=== PATIENT | female | born 1945 | race Caucasian/White ===

== ENCOUNTER 2022-08-17 15:32 | Inpatient (IN) | payer MEDICARE, OTHER ==
[~2022-08-17] VITALS: Ht 154.9 cm; Wt 61.2 kg
--- NOTE | 2022-08-17 15:54 | NUR ---
[id number] C/O SUBSTERNAL CP X 3 DAYS RADIATING TO THE THE BACK, 01/29. DENIES N/V AND DIARRHEA. NO SOB. LIVES AT HOME WITH FAMILY. PLACED PT IN BED AND PLACED IN FUEL CONVERSION TECHNICIAN, TECH AT BEDSIDE FOR EKG.
[2022-08-17] MEDS ORDERED: ASPIRIN 325 MG TABLET ONE (16:28)
[2022-08-17] MEDS ORDERED: ASPIRIN 325 MG TABLET PO ONE (16:30)
--- NOTE | 2022-08-17 16:45 | NUR ---
MOVE SHEET SUBMITTED.
[2022-08-17 16:52] LABS: BASOPHILS # (AUTO) 0.1 K/uL (0.0-0.2); EOSINOPHILS % (AUTO) 1.5 % (0.0-6.0); HEMATOCRIT 21 % (33-45); LYMPHOCYTES # (AUTO) 2.3 K/uL (0.8-4.8); MEAN CORPUSCULAR HGB CONC 32 g/dl (31.0-36.0); MEAN CORPUSCULAR VOLUME 75 fL (82-100); MONOCYTES # (AUTO) 2.5 K/uL (0.1-1.30); MONOCYTES % (AUTO) 21.1 % (2.0-12.0); NEUTROPHILS # (AUTO) 6.6 K/uL (1.8-8.9); NEUTROPHILS % (AUTO) 56.4 % (43.0-81.0); PLATELET COUNT (AUTO) 108 K/uL (150-450); RED BLOOD CELL COUNT(AUTO) 2.78 MIL/uL (4.0-5.2); WHITE BLOOD COUNT (AUTO) 11.7 K/uL (4.3-11.0)
[2022-08-17 17:11] LABS: HEMOGLOBIN 6.6 g/dL (11.5-14.8)
[2022-08-17 17:23] LABS: ALANINE AMINOTRANSFERASE 15 U/L (12-78); ALKALINE PHOSPHATASE 141 U/L (46-116); ASPARTATE AMINOTRANSFERASE 17 U/L (15-37); BILIRUBIN,DIRECT 0.3 mg/dL (0.0-0.2); CALCIUM, SERUM 8.5 mg/dL (8.5-10.1); CARBON DIOXIDE 22 mmol/L (21-32); CHLORIDE 107 mmol/L (98-107); CREATININE 1.5 mg/dL (0.6-1.3); GLUCOSE 136 mg/dL (74-106); POTASSIUM 5.2 mmol/L (3.5-5.1); SODIUM SERUM 138 mmol/L (136-145); TOTAL PROTEIN, SERUM 5.5 g/dL (6.4-8.2); UREA NITROGEN, BLOOD 24 mg/dL (7-18)
--- NOTE | 2022-08-17 17:40 | NUR ---
covid swab taken
[2022-08-17] MEDS ORDERED: SODIUM POLYSTYRENE SULFONATE 15 G/60 ML BOTTLE PO ONE (18:30)
[2022-08-17] MEDS ORDERED: FUROSEMIDE 20 MG/2 ML VIAL IV ONE (18:30)
[2022-08-17] MEDS ORDERED: FUROSEMIDE 20 MG/2 ML VIAL ONE (19:10)
--- NOTE | 2022-08-17 19:10 | NUR ---
[facility] CALLED BILINGUAL RECEPTIONIST PAGED.
[2022-08-17] MEDS ORDERED: SODIUM POLYSTYRENE SULFONATE 15 G/60 ML BOTTLE ONE (19:11)
--- NOTE | 2022-08-17 19:26 | NUR ---
16FR BALL INSERTED W/ URINE OUTPUT. PT TOLERATED WELL
--- NOTE | 2022-08-17 19:48 | NUR ---
BLOOD TRANSFUSION CONSENT SIGNED BY PT
[2022-08-17] MEDS ORDERED: MAG HYDROX/AL HYDROX/SIMETH 30 ML UDC PO PRN (20:00)
[2022-08-17] MEDS ORDERED: DILTIAZEM HCL 25 MG IV IV ONE (20:00)
[2022-08-17] MEDS ORDERED: MORPHINE SULFATE INJ 2 MG/ML DISP.SYRIN IV PRN (20:00)
[2022-08-17] MEDS ORDERED: ONDANSETRON HCL/PF 4 MG/2 ML VIAL IVP PRN (20:00)
[2022-08-17] MEDS ORDERED: DOCUSATE SODIUM 100 MG CAPSULE PO PRN (20:00)
[2022-08-17] MEDS ORDERED: NITROGLYCERIN 0.4 MG/TAB BOTTLE SL PRN (20:00)
--- NOTE | 2022-08-17 20:11 | NUR ---
report given to fay tamayo
[2022-08-17 20:15] LABS: LYMPHOCYTES % (MANUAL) 26 % (16-48); MONOCYTES % (MANUAL) 19 % (0-11.0); NEUTROPHILS % (MANUAL) 55 (42-76)
[2022-08-17 20:30] VITALS: BP 141/84
--- NOTE | 2022-08-17 20:30 | NUR ---
REWEAVER ADMITTING NOTES PT ARRIVED AT UNIT VIA GURNEY BY ER STAFF. PT A/O X3, ABLE TO MAKE NEEDS KNOWN, FAROESE SPEAKING PRIMARILY, UNDERSTANDS SOME CHILEAN. PT ORIENTED TO UNIT AND TAUGHT HOW TO USE CALL LIGHT. VS: 141/84 BP, 114 PULSE, 18 RR, 98.1 TEMP, 97% O2 SAT. WEIGHT: 146 LB. ALL BELONGINGS ACCOUNTED FOR AND DOCUMENTED. STABLE ON RA WITH NO S/S OF SOB OR LABORED BREATHING. TELE MONITOR PLACED, READING ST WITH BBB AND PAC'S, 100 BPM. SKIN ASSESSMENT PERFORMED AND DOCUMENTED IN CHART: R HAND BRUISE, L UPPER ARM RED SPOTS, BIG RED SPOT ON LEFT UPPER CHEST. PT DENIES ANY PAIN OR DISCOMFORT AT THIS TIME. IV ACCESS L HAND 20G SL, PATENT AND INTACT. BALL CATHETER INTACT DRAINING CLEAR YELLOW URINE. PT HAD 1X BOWEL MOVEMENT DURING ADMISSION PROCESS. SAFETY MEASURES IMPLEMENTED: BED LOCKED AND IN LOW POSITION, SIDE RAILS UP X3, CALL LIGHT AND TRAY TABLE WITHIN REACH. WILL CONTINUE TO MONITOR AND ASSIST.
--- NOTE | 2022-08-17 20:32 | NUR ---
PT TRANSFERRING TO [facility]-2 VIA ACLS PROTOCOL. VSS. ALL BELONGINGS WITH PT.
[2022-08-17] MEDS: CEFTRIAXONE 1 G in IV D5W 50 ML IV SCH (21:30)
[2022-08-18] VITALS (9 sets, daily range): BP systolic 116–146; BP diastolic 49–80
--- NOTE | 2022-08-18 04:10 | NUR ---
RN NOTES PT FINISHED TRANSFUSION OF 1 PACKED PRBC. NO REACTIONS NOTED. PT TOLERATED WELL. VITAL SIGNS DOCUMENTED PER PROTOCOL. WILL CONTINUE TO MONITOR.
[2022-08-18 06:13] LABS: OCCULT BLOOD STOOL NEGATIVE (NEGATIVE)
--- NOTE | 2022-08-18 07:00 | NUR ---
FIRER LOCOMOTIVE CRANE CLOSING NOTES PT IN BED SLEEPING AT THIS TIME. A/O X3, ABLE TO MAKE NEEDS KNOWN, KYRGYZ SPEAKING PRIMARILY, UNDERSTANDS SOME COOK ISLANDER. ON RA WITH NO S/S OF SOB OR LABORED BREATHING. TELE MONITOR PLACED, READING ST WITH BBB AND PAC'S, 100 BPM. PT DENIES ANY PAIN OR DISCOMFORT AT THIS TIME. IV ACCESS L HAND 20G SL, PATENT AND INTACT. BALL CATHETER INTACT DRAINING CLEAR YELLOW URINE. PT POST BLOOD TRANSFUSION OF 1 UNIT OF PRBC LAST NIGHT, TOLERATED WELL. ALL CARE PROVIDED AND MEDICATIONS TOLERATED WELL. SAFETY MEASURES MAINTAINED: BED LOCKED AND IN LOW POSITION, SIDE RAILS UP X3, CALL LIGHT AND TRAY TABLE WITHIN REACH. WILL ENDORSE DONTRELL TO DAY SHIFT NURSE.
[2022-08-18 07:01] LABS: IRON, SERUM 27 ug/dl (50-175); TOTAL IRON BINDING CAPACITY 150 ug/dl (250-450)
[2022-08-18 07:11] LABS: FERRITIN 883 ng/mL (8-388)
--- NOTE | 2022-08-18 07:11 | NUR ---
ORDER CHECKER OPENING NOTES RECEIVED PATIENT SLEEPING IN BED, A/Ox3 BHUTANESE SPEAKING. ABLE TO VERBALIZE NEEDS. ON ROOM AIR, NO S/S OF RESPIRATORY DISTRESS. IV ACCESS: L HAND #20 S/L. INTACT AND PATENT. ON TELE MONITORING SINUS TACH HR 101 WITH BBB AND PACs. NO C/O OF CHEST PAIN AT THIS TIME. HAS FC DRAINING YELLOW URINE. SKIN ISSUES: R HAND BRUISE, NIKKIE REDNESS, L UPPER CHEST REDNESS. SAFETY MEASURES IN PLACE: BED LOCKED AND IN LOWEST POSITION, HOB ELEVATED, SIDE RAILS UP x2, BED ALARM ON, CALL LIGHT WITHIN REACH. WILL CONTINUE TO MONITOR.
[2022-08-18] MEDS: ACETAMINOPHEN 325 MG TABLET PO PRN ×2 (08:49→21:12)
[2022-08-18] MEDS: ASPIRIN 81 MG TAB.CHEW PO SCH (08:49)
[2022-08-18] MEDS ORDERED: FOLI0.8C PO (08:57)
[2022-08-18] MEDS ORDERED: APIX2.5T PO (08:57)
[2022-08-18] MEDS ORDERED: KERENDIA PO (08:57)
[2022-08-18] MEDS ORDERED: HYDR-3980 PO (08:57)
[2022-08-18] MEDS ORDERED: CARV12.52 PO (08:57)
[2022-08-18] MEDS ORDERED: LOSA50TA39 PO (08:57)
[2022-08-18] MEDS ORDERED: LINA5TAB PO (08:57)
[2022-08-18] MEDS ORDERED: DAPA5TAB PO (08:57)
[2022-08-18] MEDS ORDERED: HYDR100T27 PO (08:57)
[2022-08-18] MEDS ORDERED: ALLO100T PO (08:57)
[2022-08-18] MEDS ORDERED: GLIP5TAB13 PO (08:57)
--- NOTE | 2022-08-18 09:00 | NUR ---
RN NOTES PATIENT COMPLAINED OF HEADACHE, PRN TYLENOL GIVEN. WILL CONTINUE TO MONITOR.
[2022-08-18] MEDS: AMIODARONE HCL 200 MG TABLET PO SCH ×2 (09:59→17:20)
[2022-08-18] MEDS: FUROSEMIDE 40 MG/4 ML VIAL IV SCH ×2 (09:59→14:04)
--- NOTE | 2022-08-18 14:29 | NUR ---
RN NOTES PAIN NOT COMPLAINING OF ANY CHEST PAIN, ON PHONE. ALL NEEDS ATTENDED TO.
--- NOTE | 2022-08-18 18:54 | NUR ---
BOOTH CASHIER CLOSING NOTES PATIENT SLEEPING IN BED, A/Ox3 COLOMBIAN SPEAKING. ABLE TO VERBALIZE NEEDS. STABLE ON ROOM AIR, NO S/S OF RESPIRATORY DISTRESS. IV ACCESS: L HAND #20 S/L. INTACT AND PATENT. ON TELE MONITORING SINUS RHYTHM HR 86. NO C/O OF CHEST PAIN AT THIS TIME. HAS FC DRAINING YELLOW URINE. SKIN ISSUES: R HAND BRUISE, NIKKIE REDNESS, L UPPER CHEST REDNESS. SAFETY MEASURES MAINTAINED: BED LOCKED AND IN LOWEST POSITION, HOB ELEVATED, SIDE RAILS UP x2, BED ALARM ON, CALL LIGHT WITHIN REACH. WILL ENDORSE TO NEXT SHIFT ANY DONTRELL.
--- NOTE | 2022-08-18 19:55 | NUR ---
CIGAR PACKER AND GRADER OPENING NOTE PATIENT AWAKE IN BED WITH DAUGHTER AT BEDSIDE, PT ALERT/ORIENTED X 4, PATIENT ABLE TO MAKE NEEDS KNOWN IN AUSTRIAN. PT STABLE ON RA, NO S/S OF DISTRESS OR SOB NOTED, BREATHING EVEN AND UNLABORED. PATIENT ON EXTERNAL LOG CHECK SCALER READING SINUS RHYTHM, HR: 81. IV ACCESS ON LEFT HAND #20G INTACT AND SALINE LOCKED. BALL CATHETER IN PLACE AND DRAINING YELLOW URINE BY GRAVITY. SAFETY MEASURES IN PLACE: CALL LIGHT WITHIN REACH, SIDE RAILS UP X 2, BED LOCKED IN LOWEST POSITION, BED ALARM ON. WILL CONTINUE TO MONITOR PATIENT
[2022-08-18 20:46] LABS: BILIRUBIN,URINE NEGATIVE (NEGATIVE); COLOR,URINE YELLOW (YELLOW); LEUKOCYTE ESTERASE ,URINE NEGATIVE (NEGATIVE); NITRITE, URINE NEGATIVE (NEGATIVE); PH,URINE 5.5 (5.0-8.0); PROTEIN,URINE NEGATIVE (NEGATIVE); UGLUCOSE NEGATIVE (NEGATIVE); UROBILINOGEN,URINE 0.2 EU/dL (0.2)
[2022-08-18] MEDS: CEFTRIAXONE 1 G in IV D5W 50 ML IV SCH (21:12)
[2022-08-18 22:37] LABS: BACTERIA,URINE None seen /HPF (None Seen); RBC,URINE 51-80 /HPF (0-2); SQUAMOUS EPITHELIAL CELL,UR 0-2 /HPF (None Seen); WBC,URINE 0-2 /HPF (0-3)
[2022-08-19] VITALS (7 sets, daily range): BP systolic 126–150; BP diastolic 54–69
--- NOTE | 2022-08-19 06:22 | NUR ---
HARNESS MENDER CLOSING NOTE PATIENT SLEEPING IN BED, PT ALERT/ORIENTED X 4, PATIENT ABLE TO MAKE NEEDS KNOWN IN AUSTRALIAN. PT STABLE ON RA, NO S/S OF DISTRESS OR SOB NOTED, BREATHING EVEN AND UNLABORED. PATIENT ON EXTERNAL HOME WORKER READING SINUS RHYTHM WITH PAC'S & PVC'S, HR: 78. IV ACCESS ON LEFT HAND #20G INTACT AND SALINE LOCKED. BALL CATHETER IN PLACE AND DRAINING YELLOW URINE BY GRAVITY, OUTPUT OF 1600 ML. NO SIGNIFICANT CHANGES THIS SHIFT, PT SLEPT WELL THROUGH THE NIGHT, MEDICATIONS GIVEN ORDERED, PT NEEDS MET THROUGHOUT SHIFT. SAFETY MEASURES IN PLACE: CALL LIGHT WITHIN REACH, SIDE RAILS UP X 2, BED LOCKED IN LOWEST POSITION, BED ALARM ON. WILL ENDORSE TO DAYSHIFT RN FOR CONTINUITY OF CARE
[2022-08-19 06:35] LABS: BASOPHILS # (AUTO) 0.1 K/uL (0.0-0.2); HEMATOCRIT 27 % (33-45); HEMOGLOBIN 8.6 g/dL (11.5-14.8); LYMPHOCYTES # (AUTO) 2.2 K/uL (0.8-4.8); LYMPHOCYTES % (AUTO) 16.1 % (20.0-44.0); MEAN CORPUSCULAR HGB CONC 32 g/dl (31.0-36.0); MEAN CORPUSCULAR VOLUME 76 fL (82-100); MONOCYTES # (AUTO) 2.9 K/uL (0.1-1.30); MONOCYTES % (AUTO) 21.8 % (2.0-12.0); NEUTROPHILS % (AUTO) 59.1 % (43.0-81.0); PLATELET COUNT (AUTO) 83 K/uL (150-450); RED BLOOD CELL COUNT(AUTO) 3.48 MIL/uL (4.0-5.2); WHITE BLOOD COUNT (AUTO) 13.5 K/uL (4.3-11.0)
--- NOTE | 2022-08-19 07:20 | NUR ---
MS RN OPENING NOTES RECEIVED PATIENT SLEEPING IN BED, A/Ox3 TURKMEN SPEAKING. ABLE TO VERBALIZE NEEDS. ON ROOM AIR, NO S/S OF RESPIRATORY DISTRESS. IV ACCESS: L HAND #20 S/L, R CHEST PORT. INTACT AND PATENT. NO C/O OF CHEST PAIN AT THIS TIME. HAS FC DRAINING YELLOW URINE. SKIN ISSUES: R HAND BRUISE, NIKKIE REDNESS, L UPPER CHEST REDNESS. SAFETY MEASURES IN PLACE: BED LOCKED AND IN LOWEST POSITION, HOB ELEVATED, SIDE RAILS UP x2, BED ALARM ON, CALL LIGHT WITHIN REACH. WILL CONTINUE TO MONITOR. Addendum: 08/19/22 at 0815 by MALIHA DUDLEY RN ADDENDUM: PATIENT STILL ON TELE MONITORING SHOWING SINUS RHYTHM HR 86 WITH PVCs AND PACs
[2022-08-19 07:25] LABS: ALANINE AMINOTRANSFERASE 17 U/L (12-78); ALBUMIN 2.9 g/dL (3.4-5.0); ALKALINE PHOSPHATASE 167 U/L (46-116); ASPARTATE AMINOTRANSFERASE 19 U/L (15-37); BILIRUBIN,TOTAL 0.9 mg/dL (0.2-1.0); CALCIUM, SERUM 8.3 mg/dL (8.5-10.1); CARBON DIOXIDE 25 mmol/L (21-32); CHLORIDE 101 mmol/L (98-107); CREATININE 1.8 mg/dL (0.6-1.3); GLUCOSE 222 mg/dL (74-106); MAGNESIUM 1.8 mg/dL (1.8-2.4); PHOSPHORUS 5.4 mg/dL (2.5-4.9); POTASSIUM 4.1 mmol/L (3.5-5.1); SODIUM SERUM 136 mmol/L (136-145); TOTAL PROTEIN, SERUM 5.4 g/dL (6.4-8.2); UREA NITROGEN, BLOOD 29 mg/dL (7-18)
[2022-08-19] MEDS: AMIODARONE HCL 200 MG TABLET PO SCH ×2 (08:17→16:18)
[2022-08-19] MEDS: ASPIRIN 81 MG TAB.CHEW PO SCH (08:17)
--- NOTE | 2022-08-19 15:00 | NUR ---
RN NOTES PATIENT IN BED RESTING, NO S/S OF CHEST PAIN OR DISCOMFORT. WILL CONTINUE TO MONITOR.
[2022-08-19] MEDS: CARVEDILOL 12.5 MG TABLET PO SCH (16:18)
--- NOTE | 2022-08-19 18:48 | NUR ---
HAT MAKER CLOSING NOTES PATIENT SLEEPING IN BED, A/Ox3 CZECH SPEAKING. ABLE TO VERBALIZE NEEDS. STABLE ON ROOM AIR, NO S/S OF RESPIRATORY DISTRESS. IV ACCESS: L HAND #20 S/L. INTACT AND PATENT. ON TELE MONITORING SINUS RHYTHM 75 WITH BBB, PACs AND PVCs. NO C/O OF CHEST PAIN AT THIS TIME. HAS FC DRAINING YELLOW URINE. SKIN ISSUES: R HAND BRUISE, NIKKIE REDNESS, L UPPER CHEST REDNESS. SAFETY MEASURES IN PLACE: BED LOCKED AND IN LOWEST POSITION, HOB ELEVATED, SIDE RAILS UP x2, BED ALARM ON, CALL LIGHT WITHIN REACH. WILL ENDORSE TO NEXT SHIFT ANY DONTRELL.
[2022-08-19 19:22] LABS: BAND % (MANUAL) 5 % (0.0-5.0); LYMPHOCYTES % (MANUAL) 29 % (16-48); MONOCYTES % (MANUAL) 17 % (0-11.0); NEUTROPHILS % (MANUAL) 49 (42-76)
--- NOTE | 2022-08-19 19:30 | NUR ---
COLLEGE DIRECTOR NOTES Received pt lying bed on semi fowlers position awake and alert Salvadorean speaking with heplock on her left hand gauge 20 patent and intact. Denies any pain or any discomfort. Re- orient where she at and how to used the call light system. She also on Tele SR with BBB ,PAC's ,PVC's. Respiration even and non-labored . She also have nix to gravity with draining well. Kept her warm and comfortable at all times . Bed in low and lock in position with side rails X2 up . Place call light at reach. will continue monitoring.
[2022-08-19] MEDS: CEFTRIAXONE 1 G in IV D5W 50 ML IV SCH (20:33)
[2022-08-20 00:24] VITALS: BP 131/38
[2022-08-20 04:40] VITALS: BP 144/62
[2022-08-20 06:46] LABS: BASOPHILS # (AUTO) 0.1 K/uL (0.0-0.2); BASOPHILS % (AUTO) 0.5 % (0.0-2.0); EOSINOPHILS % (AUTO) 2.5 % (0.0-6.0); HEMATOCRIT 26 % (33-45); HEMOGLOBIN 8.2 g/dL (11.5-14.8); LYMPHOCYTES # (AUTO) 2.1 K/uL (0.8-4.8); LYMPHOCYTES % (AUTO) 18.2 % (20.0-44.0); MEAN CORPUSCULAR HGB CONC 32 g/dl (31.0-36.0); MEAN CORPUSCULAR VOLUME 77 fL (82-100); MONOCYTES # (AUTO) 2.7 K/uL (0.1-1.30); MONOCYTES % (AUTO) 23.2 % (2.0-12.0); NEUTROPHILS # (AUTO) 6.4 K/uL (1.8-8.9); NEUTROPHILS % (AUTO) 55.6 % (43.0-81.0); PLATELET COUNT (AUTO) 77 K/uL (150-450); RED BLOOD CELL COUNT(AUTO) 3.38 MIL/uL (4.0-5.2); WHITE BLOOD COUNT (AUTO) 11.5 K/uL (4.3-11.0)
[2022-08-20 06:55] LABS: CALCIUM, SERUM 8.2 mg/dL (8.5-10.1); CARBON DIOXIDE 25 mmol/L (21-32); CHLORIDE 100 mmol/L (98-107); CREATININE 1.9 mg/dL (0.6-1.3); GLUCOSE 219 mg/dL (74-106); MAGNESIUM 1.9 mg/dL (1.8-2.4); PHOSPHORUS 4.8 mg/dL (2.5-4.9); SODIUM SERUM 136 mmol/L (136-145); UREA NITROGEN, BLOOD 33 mg/dL (7-18)
--- NOTE | 2022-08-20 06:57 | NUR ---
tele cream beater notes pt remain sleeping coimfortably in bed with no signs of any acute distress or any discomfort noted. Stable throughout the night . vital signs stable .Morning care rendered with the helped of SANTANA Valdez. Tele SR with BBB with PVC"S and PAC"S . Kept her warm and comfortable at all times. On semi fowlers position with side rails X2 up, bed in low and lock in position with bed alarm set for pt safety. will endorse to am nurse for continuity of care. place call light at reach.
[2022-08-20 07:04] LABS: THYROID STIMULATING HORMONE 1.938 uIU/mL (0.358-3.74)
[2022-08-20 07:05] LABS: C-REACTIVE PROTEIN 2.2 mg/dL (0.0-0.9)
[2022-08-20 07:12] LABS: D-DIMER 0.7 mg/L(FEU (0.17-0.50)
--- NOTE | 2022-08-20 07:18 | NUR ---
CASINO CAGE SUPERVISOR OPENING NOTES PATIENT SLEEPING IN BED, A/Ox3. ABLE TO VERBALIZE NEEDS. STABLE ON ROOM AIR, NO S/S OF RESPIRATORY DISTRESS. IV ACCESS: L HAND #20 S/L. INTACT AND PATENT. ON TELE MONITORING SINUS RHYTHM WITH BBB, PACs AND PVCs. NO COMPLAIN OF CHEST PAIN AT THIS TIME. HAS BALL CATHETER DRAINING VIA GRAVITY TO URINE BAG WITH YELLOW URINE. WITH RIGHT CHEST WALL PERMACATH. SAFETY MEASURES IN PLACE: BED LOCKED AND IN LOWEST POSITION, HOB ELEVATED, SIDE RAILS UP x2, BED ALARM ON, CALL LIGHT WITHIN REACH. WILL CONTINUE WITH PLAN OF CARE.
[2022-08-20 08:16] VITALS: BP 135/48
[2022-08-20] MEDS: ASPIRIN 81 MG TAB.CHEW PO SCH (08:56)
[2022-08-20] MEDS: ALLOPURINOL 100 MG TABLET PO SCH (08:57)
[2022-08-20] MEDS: CARVEDILOL 12.5 MG TABLET PO SCH ×2 (08:57→16:51)
[2022-08-20] MEDS: LINAGLIPTIN 5 MG TABLET PO SCH ×2 (08:58→09:00)
[2022-08-20] MEDS: FOLIC ACID 1 MG TABLET PO SCH (08:58)
[2022-08-20] MEDS: LOSARTAN POTASSIUM 50 MG TABLET PO SCH (08:58)
[2022-08-20] MEDS: AMIODARONE HCL 200 MG TABLET PO SCH ×2 (08:58→16:51)
--- NOTE | 2022-08-20 09:36 | NUR ---
AMERICAN SIGN LANGUAGE TEACHER NOTE TRAJENTA NOT GIVEN, PATIENT ON NPO ORDERED. IN STABLE CONDITION.
[2022-08-20 12:00] VITALS: BP 116/50
[2022-08-20 16:01] VITALS: BP 153/56
--- NOTE | 2022-08-20 19:05 | NUR ---
LOOP DRIER OPERATOR CLOSING NOTES PATIENT IN BED, A/Ox3. ABLE TO VERBALIZE NEEDS. STABLE ON ROOM AIR, NO S/S OF RESPIRATORY DISTRESS. IV ACCESS: L HAND #20 S/L. INTACT AND PATENT. ON TELE MONITORING SINUS RHYTHM WITH BBB, PACs AND PVCs. NO COMPLAIN OF CHEST PAIN AT THIS TIME. HAS BALL CATHETER DRAINING VIA GRAVITY TO URINE BAG WITH YELLOW URINE. WITH RIGHT CHEST WALL PERMACATH. SAFETY MEASURES IN PLACE: BED LOCKED AND IN LOWEST POSITION, HOB ELEVATED, SIDE RAILS UP x2, BED ALARM ON, CALL LIGHT WITHIN REACH. ENDORSED TO NEXT SHIFT FOR CONTINUITY OF CARE. SEEN BY DR. TIO MD SPOKE WITH DAUGHTER ANSON. IN STABLE CONDITION.
[2022-08-20 19:14] LABS: BAND % (MANUAL) 3 % (0.0-5.0); EOSINOPHILS % (MANUAL) 0 % (0-4); LYMPHOCYTES % (MANUAL) 16 % (16-48); MONOCYTES % (MANUAL) 22 % (0-11.0); NEUTROPHILS % (MANUAL) 59 (42-76)
--- NOTE | 2022-08-20 19:34 | NUR ---
TELE SUPERVISOR CELL ROOM INITIAL NOTES Received report from Am nurse and checked the patient as well. She's awake , alert watching TV at this time. Denies any pain or any discomfort. Still with Montaño to gravity with clear yellow output noted .She also on Tele SR with BBB with PAC's and PVC's. Encourage her to used the call light system if she needs some help or needs assistance. Kept her warm and comfortable at all times. will continue monitoring.
[2022-08-20 20:00] VITALS: BP_SYST 123; BP_SYST 130; BP_DIAS 60; BP_DIAS 70
[2022-08-20] MEDS: CEFTRIAXONE 1 G in IV D5W 50 ML IV SCH (21:21)
[2022-08-21] VITALS: BP_SYST 132; BP_SYST 137; BP_DIAS 44; BP_DIAS 77
--- NOTE | 2022-08-21 | NUR ---
EdytaN NOTES PT SLEEPING COMFORTABLY IN BED WITHOUT ANY DISTRESS NOTED. KEPT HER WARM AND COMFORTABLE AT ALL TIMES. WILL CONTINUE MONITORING.
[2022-08-21 04:00] VITALS: BP 109/61
[2022-08-21 07:00] VITALS: BP 124/58
[2022-08-21 07:07] LABS: IMMUNOGLOBULIN A, SERUM 33 mg/dL (64-422); IMMUNOGLOBULIN G, SERUM 450 mg/dL (586-1602); IMMUNOGLOBULIN M, SERUM 53 mg/dL (26-217)
--- NOTE | 2022-08-21 07:21 | NUR ---
TELE HOTEL SUPERINTENDENT CLOSING NOTES Pt remains sleeping but arousable to touch. She woke up with smile on her face. Denies any pain at this time. stable all night. Tele SR with BBB, PAC's and PVC"s. Montaño draining well. Bed in low and lock in position with side rails x2 up and bed alarm set for pt safety. place call light at reach. endorse to am nurse for continuity of care.
--- NOTE | 2022-08-21 07:28 | NUR ---
RN OPENING NOTE RECEIVED PATIENT IN BED AWAKE, A/O X4, VERBALLY RESPONSIVE. NO SIGNS OF ACUTE DISTRESS NOTED. STABLE ON ROOM AIR, BREATHING EVEN AND UNLABORED. NO C/O PAIN AT THIS TIME. NOTED WITH PERIPHERAL LINE ON LEFT HAND #20G, INTACT AND PATENT, SALINE LOCKED. WITH F/C INTACT, DRAINING CLEAR YELLOW URINE VIA GRAVITY. ON TELE MONITORING CURRENTLY SHOWING SINUS RHYTHM WITH BBB, HR @64. SAFETY MEASURE IN PLACE. BED IN LOWEST AND LOCKED POSITION. SIDE RAILS UP X2, CALL LIGHT PLACED WITHIN EASY REACH. WILL CONTINUE TO MONITOR PATIENT.
[2022-08-21] MEDS: ALLOPURINOL 100 MG TABLET PO SCH (08:42)
[2022-08-21] MEDS: ASPIRIN 81 MG TAB.CHEW PO SCH (08:42)
[2022-08-21] MEDS: FOLIC ACID 1 MG TABLET PO SCH (08:42)
[2022-08-21] MEDS: LINAGLIPTIN 5 MG TABLET PO SCH (08:42)
[2022-08-21] MEDS: LOSARTAN POTASSIUM 50 MG TABLET PO SCH (08:43)
[2022-08-21] MEDS: AMIODARONE HCL 200 MG TABLET PO SCH ×2 (08:43→16:39)
[2022-08-21] MEDS: CARVEDILOL 12.5 MG TABLET PO SCH ×2 (08:43→16:39)
[2022-08-21 11:13] LABS: *ANA ANTI-CENTROMERE B AB <0.2 AI (0.0-0.9); *ANA ANTI-DNA(DS) AB, QN 1 IU/mL (0-9); *ANA ANTI-JO-1 <0.2 AI (0.0-0.9); *ANA ANTICHROMATIN ANTIBODY <0.2 AI (0.0-0.9); *ANA RNP ANTIBODIES <0.2 AI (0.0-0.9); *ANA SJOGREN'S ANTI-SS-A >8.0 AI (0.0-0.9); *ANA SJOGREN'S ANTI-SS-B <0.2 AI (0.0-0.9); *ANAANTI-SCLERODERMA-70 AB <0.2 AI (0.0-0.9); *ANASMITH AB <0.2 AI (0.0-0.9)
[2022-08-21 12:00] VITALS: BP 127/48
[2022-08-21 16:00] VITALS: BP 125/55
--- NOTE | 2022-08-21 18:39 | NUR ---
RN CLOSING NOTE PATIENT IN BED AWAKE, A/O X4, VERBALLY RESPONSIVE. NO SIGNS OF ACUTE DISTRESS NOTED. REMAINS STABLE ON ROOM AIR, BREATHING EVEN AND UNLABORED. NO C/O PAIN AT THIS TIME. PERIPHERAL LINE ON LEFT HAND #20G, INTACT AND PATENT, SALINE LOCKED. WITH F/C INTACT, DRAINING CLEAR YELLOW URINE VIA GRAVITY. CONTINUE ON TELE MONITORING CURRENTLY SHOWING SINUS RHYTHM WITH BBB, HR @64. ALL DUE MEDS GIVEN, TOLERATED WELL. SAFETY MEASURE MAINTAINED. BED IN LOWEST AND LOCKED POSITION. SIDE RAILS UP X2, CALL LIGHT PLACED WITHIN EASY REACH. WILL ENDORSE TO NEXT SHIFT FOR CONTINUITY OF CARE.
--- NOTE | 2022-08-21 19:30 | NUR ---
LEACH CELL OPERATOR OPENING NOTE RECEIVED PT AWAKE IN BED. A/O X4, SLOVENIAN SPEAKING, AND ABLE TO MAKE NEEDS KNOWN. PT STABLE ON ROOM AIR, TOLERATING WELL. NO SOB OR S/S OF RESPIRATORY DISTRESS. BREATHING EVEN AND UNLABORED. ON EXTERNAL MEDICAL SECRETARY RECEPTIONIST READING SR 66 BPM WITH BBB AND PACS. IV ACCESS L HAND 20G, INTACT AND PATENT, AND RCW PORTACATH. SAFETY PRECAUTIONS IN PLACE. BED IN LOWEST LOCKED POSITION, HOB ELEVATED, SIDE RAILS UP X3, AND CALL LIGHT AND TABLE WITHIN REACH. ALL NEEDS MET AT THIS TIME.
[2022-08-21 20:00] VITALS: BP 113/53
[2022-08-21] MEDS: CEFTRIAXONE 1 G in IV D5W 50 ML IV SCH (20:27)
[2022-08-22] VITALS: BP_SYST 133; BP_SYST 153; BP_DIAS 57; BP_DIAS 74
[2022-08-22 04:00] VITALS: BP 131/60
--- NOTE | 2022-08-22 06:48 | NUR ---
PLACEMENT ASSISTANT CLOSING NOTE PT AWAKE IN BED. A/O X4, IRISH SPEAKING, AND ABLE TO MAKE NEEDS KNOWN. PT STABLE ON ROOM AIR, TOLERATING WELL. NO SOB OR S/S OF RESPIRATORY DISTRESS. BREATHING EVEN AND UNLABORED. ON EXTERNAL CARDIOLOGY COORDINATOR READING SR 62 BPM WITH BBB AND PACS. IV ACCESS L HAND 20G, INTACT AND PATENT, AND RCW PORTACATH. ALL DUE MEDS GIVEN ORDERED. KEPT CLEAN AND DRY. SAFETY PRECAUTIONS IN PLACE AT ALL TIMES. BED IN LOWEST LOCKED POSITION, HOB ELEVATED, SIDE RAILS UP X3, AND CALL LIGHT AND TABLE WITHIN REACH. ALL NEEDS MET AT THIS TIME AND WILL ENDORSE TO ONCOMING NURSE FOR DONTRELL.
[2022-08-22 07:00] VITALS: BP 136/50
--- NOTE | 2022-08-22 07:10 | NUR ---
TURKEY CLEANER OPENING NOTES RECEIVED PATIENT SLEEPING IN BED, A/Ox3 KUWAITI SPEAKING. ABLE TO VERBALIZE NEEDS. ON ROOM AIR, NO S/S OF RESPIRATORY DISTRESS. IV ACCESS: L HAND #20 S/L, R CHEST PORT. INTACT AND PATENT. ON TELE MONITORING SHOWING SINUS RHYTHM HR 86 WITH BBB AND PACs. NO C/O OF CHEST PAIN AT THIS TIME. HAS FC DRAINING YELLOW URINE. SKIN ISSUES: R HAND BRUISE, NIKKIE REDNESS, L UPPER CHEST REDNESS. SAFETY MEASURES IN PLACE: BED LOCKED AND IN LOWEST POSITION, HOB ELEVATED, SIDE RAILS UP x2, BED ALARM ON, CALL LIGHT WITHIN REACH. WILL CONTINUE TO MONITOR.
[2022-08-22 07:18] LABS: BASOPHILS # (AUTO) 0.1 K/uL (0.0-0.2); BASOPHILS % (AUTO) 0.8 % (0.0-2.0); HEMATOCRIT 23 % (33-45); HEMOGLOBIN 7.4 g/dL (11.5-14.8); LYMPHOCYTES # (AUTO) 1.9 K/uL (0.8-4.8); LYMPHOCYTES % (AUTO) 19.8 % (20.0-44.0); MEAN CORPUSCULAR HGB CONC 32 g/dl (31.0-36.0); MEAN CORPUSCULAR VOLUME 76 fL (82-100); MONOCYTES # (AUTO) 2.4 K/uL (0.1-1.30); MONOCYTES % (AUTO) 24.7 % (2.0-12.0); NEUTROPHILS # (AUTO) 5.1 K/uL (1.8-8.9); NEUTROPHILS % (AUTO) 52.7 % (43.0-81.0); PLATELET COUNT (AUTO) 60 K/uL (150-450); RED BLOOD CELL COUNT(AUTO) 3.04 MIL/uL (4.0-5.2); WHITE BLOOD COUNT (AUTO) 9.7 K/uL (4.3-11.0)
[2022-08-22 07:36] LABS: ALANINE AMINOTRANSFERASE 17 U/L (12-78); ALBUMIN 2.8 g/dL (3.4-5.0); ALKALINE PHOSPHATASE 130 U/L (46-116); ASPARTATE AMINOTRANSFERASE 20 U/L (15-37); BILIRUBIN,TOTAL 0.7 mg/dL (0.2-1.0); CALCIUM, SERUM 7.5 mg/dL (8.5-10.1); CARBON DIOXIDE 25 mmol/L (21-32); CHLORIDE 102 mmol/L (98-107); CREATININE 2.2 mg/dL (0.6-1.3); GLUCOSE 188 mg/dL (74-106); MAGNESIUM 2.3 mg/dL (1.8-2.4); POTASSIUM 4.4 mmol/L (3.5-5.1); SODIUM SERUM 136 mmol/L (136-145); TOTAL PROTEIN, SERUM 5.2 g/dL (6.4-8.2); UREA NITROGEN, BLOOD 41 mg/dL (7-18)
[2022-08-22] MEDS: FOLIC ACID 1 MG TABLET PO SCH (08:48)
[2022-08-22] MEDS: LINAGLIPTIN 5 MG TABLET PO SCH (08:48)
[2022-08-22] MEDS: ALLOPURINOL 100 MG TABLET PO SCH (08:48)
[2022-08-22] MEDS: ASPIRIN 81 MG TAB.CHEW PO SCH (08:48)
[2022-08-22] MEDS: LOSARTAN POTASSIUM 50 MG TABLET PO SCH (08:49)
[2022-08-22] MEDS: CARVEDILOL 12.5 MG TABLET PO SCH ×2 (08:49→16:22)
[2022-08-22] MEDS: AMIODARONE HCL 200 MG TABLET PO SCH ×2 (08:50→16:21)
--- NOTE | 2022-08-22 11:35 | NUR ---
RN NOTE RECEIVED PATIENT IN BED AWAKE, WATCHING TV. NO SIGNS OF ACUTE DISTRESS NOTED. ON ROOM AIR, TOLERATING WELL. BREATHING EVEN AND UNLABORED. DENIES ANY PAIN AT THIS TIME, NO CARDIAC DISTRESS NOTED. WITH F/C INTACT, DRAINING CLEAR YELLOW URINE VIA GRAVITY. SAFETY MEASURES IN PLACE. WILL CONTINUE TO MONITOR PATIENT.
--- NOTE | 2022-08-22 11:36 | NUR ---
RN NOTES PATIENT CARE TRANSFERRED TO [facility].
[2022-08-22 12:00] VITALS: BP 124/39
[2022-08-22 13:10] LABS: BAND % (MANUAL) 1 % (0.0-5.0); BASOPHILS % (MANUAL) 0 % (0.0-2.0); EOSINOPHILS % (MANUAL) 2 % (0-4); LYMPHOCYTES % (MANUAL) 32 % (16-48); MONOCYTES % (MANUAL) 19 % (0-11.0); NEUTROPHILS % (MANUAL) 46 (42-76)
[2022-08-22 16:00] VITALS: BP 139/54
[2022-08-22] MEDS ORDERED: DEXTROSE 50%-WATER 50 ML DISP.SYRIN IV PRN (16:00)
[2022-08-22] MEDS: BLOOD SUGAR DIAGNOSTIC 1 EACH STRIP IN SCH ×2 (16:59→21:45)
[2022-08-22] MEDS: INSULIN REGULAR, HUMAN 100 UNIT/ML 3 ML VIAL SQ PRN ×2 (17:34→21:47)
--- NOTE | 2022-08-22 18:46 | NUR ---
RN CLOSING NOTE PATIENT IN BED AWAKE, A/O X4, VERBALLY RESPONSIVE. NO SIGNS OF ACUTE DISTRESS NOTED. REMAINS STABLE ON ROOM AIR, BREATHING EVEN AND UNLABORED. NO C/O PAIN AT THIS TIME. PERIPHERAL LINE ON LEFT HAND #20G, INTACT AND PATENT, SALINE LOCKED. WITH F/C INTACT, DRAINING CLEAR YELLOW URINE VIA GRAVITY. CONTINUE ON TELE MONITORING CURRENTLY SHOWING SINUS RHYTHM WITH BBB, PAC'S HR @66. ALL DUE MEDS GIVEN, TOLERATED WELL. SCHEDULED FOR EGD TOMORROW. SAFETY MEASURE MAINTAINED. BED IN LOWEST AND LOCKED POSITION. SIDE RAILS UP X2, CALL LIGHT PLACED WITHIN EASY REACH. WILL ENDORSE TO NEXT SHIFT FOR CONTINUITY OF CARE.
--- NOTE | 2022-08-22 19:15 | NUR ---
RN opening notes Received pt from morning nurse. Pt is sitting in bed comfortably watching TV. Pt is alert and orientedX4. Pt speaks French and able to make needs known. Tele monitor showed SR. IV site at L hand# 20 is clean, intact and flushes well. RCW portacath is inplaced. Montaño cath is inplaced and draining yellow urine. NPO midnight. Safety precautions is maintained. bed at low position, brakes locked, side rails upX3, bed alarm is on, hob elevated and call light is within reach. Will continue to monitor.
[2022-08-22 20:00] VITALS: BP_SYST 135; BP_SYST 145; BP_SYST 149; BP_DIAS 51; BP_DIAS 58; BP_DIAS 77
[2022-08-22] MEDS: CEFTRIAXONE 1 G in IV D5W 50 ML IV SCH (20:24)
[2022-08-23] VITALS: BP 137/51
[2022-08-23 03:10] LABS: BILIRUBIN,URINE NEGATIVE (NEGATIVE); COLOR,URINE YELLOW (YELLOW); LEUKOCYTE ESTERASE ,URINE TRACE (NEGATIVE); NITRITE, URINE NEGATIVE (NEGATIVE); PH,URINE 5.5 (5.0-8.0); PROTEIN,URINE TRACE mg/dl (NEGATIVE); UGLUCOSE NEGATIVE (NEGATIVE); UROBILINOGEN,URINE 0.2 EU/dL (0.2)
[2022-08-23 03:15] LABS: BACTERIA,URINE Rare /HPF (None Seen); SQUAMOUS EPITHELIAL CELL,UR Moderate /HPF (None Seen); WBC,URINE 0-2 /HPF (0-3)
[2022-08-23 03:18] LABS: CREATININE, URINE 18.9 MG/DL (30.0-125.0)
[2022-08-23 04:00] VITALS: BP 132/48
[2022-08-23] MEDS: BLOOD SUGAR DIAGNOSTIC 1 EACH STRIP IN SCH ×4 (06:30→22:34)
[2022-08-23] MEDS: INSULIN REGULAR, HUMAN 100 UNIT/ML 3 ML VIAL SQ PRN ×3 (06:30→22:38)
--- NOTE | 2022-08-23 06:30 | NUR ---
RN closing notes Pt is resting in bed comfortably. Pt is alert and orientedX4. Pt speaks Palauan and able to make needs known. Tele monitor showed S. hilda with ST depression HR at 57. IV site at L hand# 20 is clean, intact and SL. RCW portacath is inplaced. VS is stable. afebrile. Routine meds were given as ordered. Montaño cath is inplaced and draining yellow urine 700ml. NPO since midnight. Kept Pt clean, dry and comfortable. Safety precautions is maintained. bed at low position, brakes locked, side rails upX3, bed alarm is on, hob elevated and call light is within reach. Will endorse to am nurse for DONTRELL.
[2022-08-23 06:46] LABS: BASOPHILS # (AUTO) 0.1 K/uL (0.0-0.2); EOSINOPHILS % (AUTO) 2.2 % (0.0-6.0); HEMATOCRIT 24 % (33-45); HEMOGLOBIN 7.5 g/dL (11.5-14.8); LYMPHOCYTES % (AUTO) 20.6 % (20.0-44.0); MEAN CORPUSCULAR HGB CONC 32 g/dl (31.0-36.0); MEAN CORPUSCULAR VOLUME 77 fL (82-100); MONOCYTES # (AUTO) 2.4 K/uL (0.1-1.30); MONOCYTES % (AUTO) 24.8 % (2.0-12.0); NEUTROPHILS % (AUTO) 51.4 % (43.0-81.0); PLATELET COUNT (AUTO) 61 K/uL (150-450); RED BLOOD CELL COUNT(AUTO) 3.07 MIL/uL (4.0-5.2); WHITE BLOOD COUNT (AUTO) 9.8 K/uL (4.3-11.0)
[2022-08-23 07:22] LABS: CALCIUM, SERUM 7.6 mg/dL (8.5-10.1); CARBON DIOXIDE 23 mmol/L (21-32); CHLORIDE 103 mmol/L (98-107); CREATININE 2.2 mg/dL (0.6-1.3); GLUCOSE 176 mg/dL (74-106); MAGNESIUM 2.4 mg/dL (1.8-2.4); POTASSIUM 4.7 mmol/L (3.5-5.1); SODIUM SERUM 137 mmol/L (136-145); UREA NITROGEN, BLOOD 46 mg/dL (7-18)
--- NOTE | 2022-08-23 07:32 | NUR ---
RN Opening Note PT AOx4 able to express her own concerns. Patient in bed, made aware of plan of care, verbalized understanding. Patient with no signs of distress or discomfort, IV site with no signs of infiltration. All safety precautions taken, call light and table within reach, bed at lowest position.
[2022-08-23 08:00] VITALS: BP 135/66
[2022-08-23] MEDS: LINAGLIPTIN 5 MG TABLET PO SCH ×2 (08:50→09:00)
[2022-08-23] MEDS: ASPIRIN 81 MG TAB.CHEW PO SCH ×2 (08:50→09:00)
[2022-08-23] MEDS: FOLIC ACID 1 MG TABLET PO SCH ×2 (08:50→09:00)
[2022-08-23] MEDS: CARVEDILOL 12.5 MG TABLET PO SCH ×3 (08:51→17:23)
[2022-08-23] MEDS: ALLOPURINOL 100 MG TABLET PO SCH ×2 (08:51→09:00)
[2022-08-23] MEDS: LOSARTAN POTASSIUM 50 MG TABLET PO SCH (08:52)
[2022-08-23] MEDS: AMIODARONE HCL 200 MG TABLET PO SCH ×3 (08:53→17:24)
--- NOTE | 2022-08-23 09:59 | NUR ---
MEds Non-Admin. Non Administered meds since pt has an EGD pending, per physicians orders keep pt NPO
[2022-08-23 11:16] LABS: BAND % (MANUAL) 2 % (0.0-5.0); BASOPHILS % (MANUAL) 0 % (0.0-2.0); EOSINOPHILS % (MANUAL) 2 % (0-4); LYMPHOCYTES % (MANUAL) 30 % (16-48); MONOCYTES % (MANUAL) 19 % (0-11.0); NEUTROPHILS % (MANUAL) 47 (42-76)
[2022-08-23 16:00] VITALS: BP 146/74
--- NOTE | 2022-08-23 18:39 | NUR ---
RN Closing Note PT AOx4 able to express her own concerns. Pt remained safe throughout shift, all medications administered as prescribed and care provided as needed. Patient with no signs of distress or discomfort, IV site with no signs of infiltration. All safety precautions taken, call light and table within reach, bed at lowest position. Will endorse to night nurse for continuity of care.
--- NOTE | 2022-08-23 19:15 | NUR ---
noc rn opening received patient in bed. Wolof speaking lady who is a/ox4. no s/s of apparent distress in room air. denies pain/chest pain at this time. iv ns running @40mls/hr. reading sr in the tele monitor with ST depression with 60 bpm. nix cath noted, draining clear, yellow urine. call light within reach, re-oriented and encouraged with the call light. safety put into place. will continue with the plan of care for patient.
[2022-08-23 20:00] VITALS: BP 132/56
[2022-08-23] MEDS: IV NS 0.9% 1,000 ML IV PRN (20:00)
[2022-08-23] MEDS: CEFTRIAXONE 1 G in IV D5W 50 ML IV SCH (20:46)
[2022-08-24] VITALS: BP 126/47
[2022-08-24 04:00] VITALS: BP_SYST 126; BP_DIAS 47; BP_DIAS 49
[2022-08-24] MEDS: BLOOD SUGAR DIAGNOSTIC 1 EACH STRIP IN SCH ×2 (06:31→12:15)
[2022-08-24] MEDS: INSULIN REGULAR, HUMAN 100 UNIT/ML 3 ML VIAL SQ PRN ×2 (06:33→12:54)
--- NOTE | 2022-08-24 06:44 | NUR ---
noc rn note patient in sleeping comfortably in bed with eyes closed, easy to arouse. no s/s of apparent distress on room air. denies pain at this time, and denies chest pain throughout shift. reading sb this am in the 50's. iv ns running @40mls/hr. patient is ambulatory, able to make needs known. call light within reach. needs attended. all scheduled meds administered. safety in place. boyd with output of 350ml. will endorse to morning shift rn for continuity of patient care.
[2022-08-24 07:00] VITALS: BP 143/63
[2022-08-24 07:13] LABS: BASOPHILS # (AUTO) 0.1 K/uL (0.0-0.2); BASOPHILS % (AUTO) 1.4 % (0.0-2.0); EOSINOPHILS % (AUTO) 1.6 % (0.0-6.0); HEMATOCRIT 22 % (33-45); LYMPHOCYTES % (AUTO) 23.5 % (20.0-44.0); MEAN CORPUSCULAR HGB CONC 32 g/dl (31.0-36.0); MEAN CORPUSCULAR VOLUME 76 fL (82-100); MONOCYTES # (AUTO) 2.3 K/uL (0.1-1.30); NEUTROPHILS # (AUTO) 4.1 K/uL (1.8-8.9); NEUTROPHILS % (AUTO) 47.5 % (43.0-81.0); PLATELET COUNT (AUTO) 56 K/uL (150-450); RED BLOOD CELL COUNT(AUTO) 2.87 MIL/uL (4.0-5.2); WHITE BLOOD COUNT (AUTO) 8.7 K/uL (4.3-11.0)
--- NOTE | 2022-08-24 07:45 | NUR ---
NAVAL MARINE ENGINEER OPENING NOTES RECEIVED PATIENT IN BED AWAKE , CITIZEN OF [place] SPEAKING , VERBALLY RESPONSIVE A/O X 4 , ROOM AIR WITH NO SOB OR DISTRESS NOTED , ON TELE MONITOR WITH SR/SB @[address] DEPRESSION , IV ACCESS ON LEFT HAND G20 WITH NS @40 ML /HR , RIGHT CHEST PORT -A CATH , NO C/O OF PAIN AND DISCOMFOR T , SAFETY MEASURES PROVIDED , CALL LIGHTS WITHIN REACH , SIDE RAILS UP X 2 AND WILL CONTINUE TO MONITOR FOR ANY CHANGES
[2022-08-24 08:31] LABS: ALANINE AMINOTRANSFERASE 17 U/L (12-78); ALBUMIN 2.8 g/dL (3.4-5.0); ALKALINE PHOSPHATASE 123 U/L (46-116); ASPARTATE AMINOTRANSFERASE 20 U/L (15-37); BILIRUBIN,TOTAL 0.7 mg/dL (0.2-1.0); CALCIUM, SERUM 7.5 mg/dL (8.5-10.1); CARBON DIOXIDE 23 mmol/L (21-32); CHLORIDE 106 mmol/L (98-107); GLUCOSE 159 mg/dL (74-106); MAGNESIUM 2.5 mg/dL (1.8-2.4); POTASSIUM 4.4 mmol/L (3.5-5.1); SODIUM SERUM 138 mmol/L (136-145); TOTAL PROTEIN, SERUM 5.1 g/dL (6.4-8.2); UREA NITROGEN, BLOOD 42 mg/dL (7-18)
[2022-08-24] MEDS: ALLOPURINOL 100 MG TABLET PO SCH (09:41)
[2022-08-24] MEDS: ASPIRIN 81 MG TAB.CHEW PO SCH (09:41)
[2022-08-24] MEDS: LINAGLIPTIN 5 MG TABLET PO SCH (09:41)
[2022-08-24] MEDS: FOLIC ACID 1 MG TABLET PO SCH (09:41)
[2022-08-24] MEDS: CARVEDILOL 12.5 MG TABLET PO SCH (09:42)
[2022-08-24] MEDS: LOSARTAN POTASSIUM 50 MG TABLET PO SCH (09:42)
[2022-08-24 10:07] LABS: *SPE A/G RATIO 1.5 (0.7-1.7); *SPE ALPHA-1-GLOBULIN 0.3 g/dL (0.0-0.4); *SPE ALPHA-2-GLOBULIN 0.7 g/dL (0.4-1.0); *SPE BETA GLOBULIN 0.6 g/dL (0.7-1.3); *SPE M-SPIKE Not Observed g/dL (Not Observed)
[2022-08-24 10:42] LABS: BAND % (MANUAL) 5 % (0.0-5.0); LYMPHOCYTES % (MANUAL) 23 % (16-48); MONOCYTES % (MANUAL) 16 % (0-11.0); NEUTROPHILS % (MANUAL) 54 (42-76)
[2022-08-24 10:43] LABS: METAMYELOCYTES % 2 % (0-0)
[2022-08-24 12:00] VITALS: BP 141/50
[2022-08-24] MEDS: IV NS 0.9% 1,000 ML IV PRN (14:32)
--- NOTE | 2022-08-24 17:30 | NUR ---
TRAINING AND DEVELOPMENT PROJECT LEADER NOTES PATIENT IN BED AWAKE , WALLISIAN SPEAKING , VERBALLY RESPONSIVE A/O X 4 , ROOM AIR WITH NO SOB OR DISTRESS NOTED , NO C/ O OF PAIN AND DISCOMFORT , ALL DUE MEDS GICEN ORDERED , SEEN BY MD DR GRULLON AND PATIENT WAS DISCHARGE FROM TELEMETRY TO [facility], PATIENT IS STABLE AND WITH ORDER FOR D/C TO HOME , DAUGHTER AWARE AND ALL DISCHARGE PAPERS WERE PREPARED , DISCHARGED INSTRUCTIONS PROVIDED TO THE DAUGHTER REGARDING MEDICATIONS , FOLLOW WITH PCP AND WHEN TO CALL 911 IN CASE OF EMERGENCY , ALL BELONGINGS AND VALUABLES WERE ACCOUNTED FOR AND DAUGHTER SIGNED THE FORM , IV ACCESS REMOVED , ID BAND REMOVED , PATIENT LEFT WITH NO SOB OR NO COMPLAINTS OF PAIN AND DISCOMFORT UPON DISCHARGE , LEFT VIA PRIVATE WITH DAUGHTER , ASSISTED TO THE LOBBY BY CHIEF ACCOUNTING OFFICER IN A STABLE CONDITION , LEFT AROUND 1700 WITH DAUGHTER .
[2022-08-25] MEDS ORDERED: AMIODARONE HCL 200 MG TABLET PO SCH (09:00)
== END 2022-08-24 17:00 | disposition home health service (06) | DRG 291 ==
LOC: ER 15:33 → TELE 19:57 → MED 08-24 14:22
PROVIDERS: ADMIT Registered Nurse
PROC: 30233N1 Transfusion of Nonautologous Red Blood Cells into Peripheral Vein, Percutaneous Approach (ICD-10-PCS; 2022-08-18)
PROC: 0DB68ZX Excision of Stomach, Via Natural or Artificial Opening Endoscopic, Diagnostic (ICD-10-PCS; principal; 2022-08-23)
DX: I11.0 Hypertensive heart disease with heart failure (principal); I50.23 Acute on chronic systolic (congestive) heart failure; J18.9 Pneumonia, unspecified organism; N17.0 Acute kidney failure with tubular necrosis; J90 Pleural effusion, not elsewhere classified; Z68.41 Body mass index [BMI] 40.0-44.9, adult; C85.90 Non-Hodgkin lymphoma, unspecified, unspecified site; D69.6 Thrombocytopenia, unspecified; E87.5 Hyperkalemia; K29.70 Gastritis, unspecified, without bleeding; D63.8 Anemia in other chronic diseases classified elsewhere; E66.01 Morbid (severe) obesity due to excess calories; Z20.822 Contact with and (suspected) exposure to COVID-19; R16.2 Hepatomegaly with splenomegaly, not elsewhere classified; Z79.84 Long term (current) use of oral hypoglycemic drugs; D72.829 Elevated white blood cell count, unspecified; K76.0 Fatty (change of) liver, not elsewhere classified; E11.9 Type 2 diabetes mellitus without complications; D50.9 Iron deficiency anemia, unspecified; D72.821 Monocytosis (symptomatic); I48.0 Paroxysmal atrial fibrillation
CPT/HCPCS: 36415; 71045-TC; 71250-TC; 76700-TC; 80048-TC; 80053-TC; 80076-TC; 81001; 82272-TC; 82570-TC; 82607-TC; 82728-TC; 82784; 82962-TC; 83540-TC; 83615-TC; 83735-TC; 83880; 84100-TC; 84155; 84165; 84300-TC; 84443-TC; 84484-TC; 85025-TC; 85045-TC; 85396; 85610-TC; 85730-TC; 86140-TC; 86225; 86235; 86334; 86431-TC; 86704; 86705; 86706; 86803; 86850-TC; 87040-TC; 87081-TC; 87340; 87806; 88305-TC; 88313-TC; 88342; 93307-TC; C9803; G0378; J0696; J1815; J1940; J2704; J3490; J7030; J7050; J7060; P9016